=== PATIENT | female | born 1995 | race Caucasian/White ===

== ENCOUNTER → 2017-12-23 | Outpatient (CLI) | payer OTHER ==
[~2017-12-23] MED LIST: PROTONIX40 MG PO; ULTRAM50 MG PO
== END | disposition home or self-care (01) ==
LOC: CT 12:30
DX: H70.93 Unspecified mastoiditis, bilateral (principal)
CPT/HCPCS: 70486

== ENCOUNTER → 2018-02-28 | Outpatient (CLI) | payer OTHER ==
[~2018-02-28] VITALS: Ht 160 cm; Wt 110.2 kg
[~2018-02-28] MED LIST changes: +LEXAPRO20 MG PO
== END | disposition home or self-care (01) ==
LOC: AMB 08:57
PROC: 0DJ08ZZ Inspection of Upper Intestinal Tract, Via Natural or Artificial Opening Endoscopic (ICD-10-PCS; principal; 2018-02-28)
DX: K21.9 Gastro-esophageal reflux disease without esophagitis (principal); F41.8 Other specified anxiety disorders; E66.9 Obesity, unspecified; Z68.41 Body mass index [BMI] 40.0-44.9, adult; Z87.891 Personal history of nicotine dependence